=== PATIENT | female | born 1990 | race Hispanic/Latino ===

== ENCOUNTER 2020-04-07 20:04 | Emergency (ER) | payer OTHER ==
[2020-04-07 20:10] VITALS: BP 122/79
[2020-04-08] MEDS ORDERED: oxyCODONE /ACETAMINOPHEN 5-325MG TAB ONE (01:08)
[2020-04-08] MEDS ORDERED: ONDANSETRON 4 MG ODT TAB ONE (01:08)
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
== END 2020-04-08 03:40 | disposition home or self-care (01) ==
LOC: ED 20:04
DX: M54.2 Cervicalgia (principal); Z53.21 Procedure and treatment not carried out due to patient leaving prior to being seen by health care provider
CPT/HCPCS: 70450; Q0162

== ENCOUNTER 2021-07-05 03:07 | Emergency (ER) | payer SELFPAY | END 2021-07-05 08:27 | LOC: ED 03:07 | DX: R42 Dizziness and giddiness (principal); R11.0 Nausea; Z53.21 Procedure and treatment not carried out due to patient leaving prior to being seen by health care provider ==